=== PATIENT | female | born 1965 | race Two or more races ===

== ENCOUNTER → 2025-01-20 | Outpatient (CLI) | payer OTHER, SELFPAY ==
[2025-01-20 14:26] LABS: Sed Rate (ESR) 17 mm/hr (0-30)
== END | disposition home or self-care (01) ==
LOC: COPL 13:22
PROVIDERS: PCP Family Medicine; Referring Provider Family Medicine; Visit Provider Family Medicine
DX: R51.9 Headache, unspecified (principal)
CPT/HCPCS: 36415; 85652